=== PATIENT | female | born 1995 | race Caucasian/White ===

== ENCOUNTER 2018-04-27 01:13 | Emergency (ER) | payer SELFPAY, MEDICAID ==
[2018-04-27] MEDS: HYDROCODONE/APAP (5/325) TAB PO (02:52)
[2018-04-27] MEDS: KETOROLAC 60 MG INJ IM (04:39)
== END 2018-04-27 04:45 | disposition home or self-care (01) ==
LOC: FTE 01:13
DX: S50.01XA Contusion of right elbow, initial encounter (principal); W18.2XXA Fall in (into) shower or empty bathtub, initial encounter; Y92.9 Unspecified place or not applicable
CPT/HCPCS: 73080; 73080-RT; 81025; 96372; 99284-25